=== PATIENT | female | born 1980 | race Caucasian/White ===

== ENCOUNTER 2017-05-04 10:09 | Emergency (ER) | payer MEDICARE, MEDICAID ==
[2017-05-04] MEDS ORDERED: Nitroglycerin 2% Ointment 1 INCH/1 GM Packet ONE (12:06)
== END 2017-05-04 12:14 | disposition home or self-care (01) ==
LOC: ERS 10:09
DX: T46.4X1A Poisoning by angiotensin-converting-enzyme inhibitors, accidental (unintentional), initial encounter (principal); T38.3X1A Poisoning by insulin and oral hypoglycemic [antidiabetic] drugs, accidental (unintentional), initial encounter; T43.211A Poisoning by selective serotonin and norepinephrine reuptake inhibitors, accidental (unintentional), initial encounter; J45.909 Unspecified asthma, uncomplicated; F17.210 Nicotine dependence, cigarettes, uncomplicated
CPT/HCPCS: 36416; 99284

== ENCOUNTER 2017-06-14 13:17 | Emergency (ER) | payer MEDICARE, MEDICAID | END 2017-06-14 15:49 | disposition home or self-care (01) | LOC: ERS 13:17 | DX: J40 Bronchitis, not specified as acute or chronic (principal); F17.210 Nicotine dependence, cigarettes, uncomplicated | CPT/HCPCS: 99406 ==

== ENCOUNTER 2017-12-06 08:38 | Outpatient (CLI) | payer MEDICARE, MEDICAID ==
--- NOTE | 2017-12-06 11:20 | ULT ---
RIGHT LOWER EXTREMITY VENOUS DUPLEX EXAM: TECHNIQUE: Deep veins of the right lower extremity evaluated with color Doppler, spectral analysis, and compress ion. INDICATION: Right lower extremity pain. History of DVT. FINDINGS: Deep veins of the right lower extremity evaluated including common femoral, profunda femoral, femoral vein, popliteal, and posterior tibial vein. The greater saphenous was also evaluated. These veins show normal blood flow and compression. No evidence of DVT. IMPRESSION: No evidence of right lower extremity deep vein thrombosis. POS: [facility]
== END 2017-12-06 08:39 | disposition home or self-care (01) ==
LOC: SCSULT 08:38
PROVIDERS: ATTEND Internal Medicine
DX: M79.604 Pain in right leg (principal)

== ENCOUNTER 2018-03-14 13:29 | Outpatient (CLI) | payer MEDICARE, MEDICAID ==
--- NOTE | 2018-03-14 14:23 | ULT ---
VENOUS DUPLEX SONOGRAM LEFT LOWER EXTREMITY: History: Left leg pain and edema. FINDINGS: The left common femoral vein and greater saphenous junction were evaluated along with the femoral, de ep femoral, popliteal, and posterior tibial veins. There is good color and spectral doppler flow, com pression, and augmentation. IMPRESSION: No sonographic evidence of DVT within the left lower extremity. POS: [facility]
== END 2018-03-14 13:30 | disposition home or self-care (01) ==
LOC: ULT 13:29
PROVIDERS: ATTEND Internal Medicine
DX: M79.662 Pain in left lower leg (principal)
CPT/HCPCS: 36415; 85379

== ENCOUNTER 2018-06-08 09:21 | Emergency (ER) | payer MEDICARE, MEDICAID | END 2018-06-08 11:16 | disposition home or self-care (01) | LOC: ERS 09:21 | DX: R60.9 Edema, unspecified (principal); J45.909 Unspecified asthma, uncomplicated; F17.210 Nicotine dependence, cigarettes, uncomplicated; F32.9 Major depressive disorder, single episode, unspecified; Z86.718 Personal history of other venous thrombosis and embolism | CPT/HCPCS: 99281 ==

== ENCOUNTER 2018-12-31 09:42 | Outpatient (CLI) | payer MEDICARE, MEDICAID ==
--- NOTE | 2018-12-31 10:43 | MRI ---
MRI Lower Ext Jt Lt WO Con History: M 25.562 acute pain in left knee Comparison: None Findings: Medial meniscus: Free edge fraying volume loss of the medial meniscal body with medial gutt er extrusion. Lateral meniscus: Horizontal tear of the lateral meniscal body is seen throughout the meniscus from t he free edge to the red zone. The ACL, PCL, MCL, LCL are all intact. Extensor mechanism: Quadriceps tendon, patella, and patellar tendon are intact. Cartilage: Patellofemoral compartment: Limited due to motion. No definite full-thickness cartilage loss. Medial compartment: There is high-grade chondral thinning of the weightbearing surface medial femoral condyle and medial tibial plateau without subcortical reactive marrow changes related appreciated. Lateral compartment: Intact. There is synovitis and scarring along the anterior inferior popliteal meniscal fascicle likely from p rior tear. Muscles: Muscle signal and bulk is normal. Soft tissues: No significant popliteal cyst formation. Small volume joint effusion. Impression: 1. Abnormal loss of volume of the medial meniscal body with gutter extrusion and subsequent 50-75% ch ondral thinning of the medial compartment and developing osteophyte formation. 2. Full-thickness horizontal cleavage tear of the lateral meniscal body extending from the free throu ghout the red zone. 3. Synovitis and scarring of the anterior inferior popliteal meniscal fascicle likely prior tear.
== END 2018-12-31 09:43 | disposition home or self-care (01) ==
LOC: BICMRI 09:42
PROVIDERS: ATTEND Internal Medicine
DX: M25.562 Pain in left knee (principal); S83.282A Other tear of lateral meniscus, current injury, left knee, initial encounter; M65.862 Other synovitis and tenosynovitis, left lower leg; M25.762 Osteophyte, left knee

== ENCOUNTER 2025-05-23 11:08 | Emergency (ER) | payer OTHER ==
[2025-05-23] MEDS ORDERED: Acetaminophen 500 MG TAB ONE (12:55)
[2025-05-23 14:18] LABS: #Basophils 0.07 10x3/uL (0.0-0.2); #Eosinophils 0.39 10x3/uL (0.0-0.7); #Monocytes 1.13 10x3/uL (0.11-0.59); #Neutrophils 6.88 10x3/uL (1.40-6.50); %Basophils 0.6 % (0.0-1.0); %Eosinophils 3.6 % (0.0-10.0); %Lymphocytes 21.5 % (21.0-51.0); %Monocytes 10.4 % (0.0-10.0); %Neutrophils 63.5 % (42.0-75.0); Hematocrit 36.1 % (36.0-47.0); Hemoglobin 11.2 g/dL (12.0-16.0); Mean Corpuscular Hemoglobin 28.2 pg (27.0-31.0); Mean Corpuscular Volume 90.9 fL (78.0-98.0); Platelet Count 245 10x3/uL (130-400); Red Blood Cell (RBC) Count 3.97 mill/uL (4.20-5.40); White Blood Cell (WBC) Count 10.84 10x3/uL (4.8-10.8)
== END 2025-05-23 15:05 | disposition home or self-care (01) ==
LOC: ERS 11:08
DX: M17.12 Unilateral primary osteoarthritis, left knee (principal); M25.462 Effusion, left knee; F17.290 Nicotine dependence, other tobacco product, uncomplicated
CPT/HCPCS: 36415; 85025; 86141; 99283